=== PATIENT | female | born 1955 | race Caucasian/White ===

== ENCOUNTER 2016-11-01 05:19 | Day surgery (SDC) | payer OTHER ==
[2016-10-26 13:22] LABS: HEMOGLOBIN 13.8 g/dL (12.0-16.0)
[2016-10-26 13:23] LABS: HEMATOCRIT 40.6 % (36.0-48.0)
[2016-10-26 13:30] LABS: BUN (BLOOD UREA NITROGEN) 15 MG/DL (6-23); CALCIUM, SERUM 9.1 MG/DL (8.5-10.4); CHLORIDE, SERUM 106 MMOL/L (96-112); CO2 (CARBON DIOXIDE) 29 MMOL/L (24-34); CREATININE 1.13 MG/DL (0.55-1.02); GFR AFRICAN AMERICAN 61 ML/MIN (>=60); GFR NON AFRICAN AMERICAN 52 ML/MIN (>=60); GLUCOSE, SERUM 91 MG/DL (60-99); POTASSIUM, SERUM 4.5 MMOL/L (3.5-5.3); SODIUM, SERUM 143 MMOL/L (135-148)
--- NOTE | ~2016-11-01 | OP ---
Record Of Operation [facility] [address] [place]. [address] NAME: LARA MASON : 55 STATUS : REG [facility] PAT#: [id number] AGE: 61 ADM/REG DATE : 11/01/16 MR#: [id number] REPORT SERV DATE: 11/01/16 DICTATED BY: SARTHAK CORTES DATE: 11/01/16 REPORT STATUS : Draft TRANSCRIBED BY: MODL DATE: 11/01/16 DATE OF PROCEDURE: PREOPERATIVE DIAGNOSES: 1. Cervical spondylosis, spinal stenosis, C3-4, 4-5, 5-6. 2. 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 POSTOPERATIVE DIAGNOSES: 1. Cervical spondylosis, spinal stenosis, C3-4, 4-5, 5-6. 2. 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 PROCEDURES: 1. Microscopic and navigation-assisted surgery. 2. Anterior cervical diskectomy with foraminotomy, C3-4, 4-5, 5-6. 3. Anterior interbody fusion with cortical cancellous allograft, C3-4, 4-5, 5-6. 4. Anterior segmental spinal instrumentation with Venture plating, C3 to C6. SURGEON: Sarthak Cortes D.O. RACK LOADER: Michael Echeverria. ANESTHESIA: General. BLOOD LOSS: 20 mL. INDICATIONS FOR SURGERY: A 61-year-old female with neck pain, shoulder and arm pains that have been present for many years, but have been slowly worsening now, has rather severe neck pain, shoulder and arm pains, has headaches that are cervicogenic in nature. She has tried usual conservative care. Plain x-rays reveal spondylosis at C3 to C6. There is also a cervical kyphosis with approximately a 10-degree kyphosis with a cervical, sagittal, vertical axis of 4 cm. The patient has failed conservative care, brought to surgery for the above procedure. Prior to surgery, risks, benefits, alternatives, and expectations explained, consent form is signed. Please also note because of the complexity of surgery and the need to identify correct level of surgery intraoperatively as well as desire to carry out the safest and most precise dissection, I feel that intraoperative navigation is mandatory. DESCRIPTION OF PROCEDURE: Antibiotic prophylaxis given. Neurophysiology monitoring leads were inserted. The patient was brought to the operative suite. General anesthetic including endotracheal intubation was administered. The patient was in a supine position on fluoroscopic Loyd spine frame. A small bolster was placed behind the shoulders, neck was in a minimally extended position. The scalp was painted with Betadine solution. [place] three-point fixation attached to the skull using 60 pounds torque in standard position. The [place] attached to the Loyd bed. The Owlr navigational registration frame attached to the [place]. Isolation drapes were placed. The neck was scrubbed with [facility] Record Of Operation [facility] [address] [place]. [address] NAME: LARA MASON : 55 STATUS : REG [facility] PAT#: [id number] AGE: 61 ADM/REG DATE : 11/01/16 MR#: [id number] REPORT SERV DATE: 11/01/16 DICTATED BY: SARTHAK CORTES DATE: 11/01/16 REPORT STATUS : Draft TRANSCRIBED BY: AVILA DATE: 11/01/16 solution. DuraPrep was painted. Sterile drapes applied. Intraoperative CT scan with O-arm obtained, CT information used to register the navigational system. With navigational assistance, I identified the C3-4, 4-5, and 5-6 level. At the disk level of C4-5, a left-sided transverse 2.5 cm skin incision was carried out. The platysma muscle was incised in line with the skin incision. The superficial layer of the deep cervical fascia was released along the anterior border of the sternocleidomastoid. Blunt dissection was carried out to the retropharyngeal space where the longus coli muscles were subperiosteally elevated. Retractors were placed. The microscope was sterilely draped and used throughout the remainder of the procedure. With navigational assistance, I identified the midbody of C5 and C6. [place] distractor pins were placed. Initially, I debrided the anterior osteophytes. Curettes and rongeurs were used to debride the disk from an anterior to posterior direction. We slowly distracted the interbody space moving from anterior to posterior to have better visualization. Endplate cartilage completely removed. The uncinate hypertrophy was debrided with a 3 mm and 2 mm anson bur. A 1 mm Kerrison also used for the foraminotomy which was carried out beyond the axilla of the nerve. The wounds were irrigated. Width, depth, and height of the disk space was measured. A wedge-shaped cortical cancellous allograft was placed in the interbody space. This traction was released locking the graft in good position. We then moved to C4-5, repeated the same identical steps with anterior diskectomy, foraminotomy, and interbody fusion. Finally, at C3-4, we completed the diskectomy, foraminotomy, and interbody fusion done in the same steps. Finally, an 8-hole Venture plate was placed over the anterior bodies of C3 to C6. Once it was properly positioned in the midline, eight holes were drilled. The locking screws inserted providing rigid stability. On the intraoperative x-rays, it was questionable as to whether or not the bottom screws of the C6 plate were near the endplate inferiorly at C6. We did an intraoperative CT scan with the O-arm and found that the screws were within the vertebral body and did not penetrate the endplate and thus, no exchange of the plate was necessary. The wound was carefully inspected, no bleeding was noted. There was no need for a drain. The platysma muscle was closed with a running 3-0 Vicryl suture. The subcutaneous tissue closed with 3-0 Vicryl suture. Subcuticular 4-0 PDS used for skin closure. Sterile dressings applied. The patient awakened, extubated, and taken to recovery room in satisfactory condition having tolerated the procedure well. Sponge, needle, and instrument counts were correct. No intraoperative complications noted. PATRICK/AVILA Record Of Operation [address] [address] NAME: LARA MASON : 55 STATUS : REG [facility] PAT#: [id number] AGE: 61 ADM/REG DATE : 11/01/16 MR#: [id number] REPORT SERV DATE: 11/01/16 DICTATED BY: SARTHAK CORTES DATE: 11/01/16 REPORT STATUS : Draft TRANSCRIBED BY: AVILA DATE: 11/01/16 Sarthak Cortes D.O. / [id number] CC: Shimon Diaz D.O. F.A.C.P.
[~2016-11-01 05:19] MED LIST: ACET500CAP PO; ASAB PO; CRESTOR10 PO; LIDODERM TOP; NEUR300 PO; PRILO PO; ULTRAM50; VOLT75 PO; WELLXL300 PO
== END 2016-11-01 17:15 | disposition home or self-care (01) ==
LOC: SDC 05:19
PROVIDERS: Orthopaedic Surgery Orthopaedic Surgery of the Spine
PROC: 0PU307Z Supplement Cervical Vertebra with Autologous Tissue Substitute, Open Approach (ICD-10-PCS; 2016-11-01)
PROC: 0RG20A0 Fusion of 2 or more Cervical Vertebral Joints with Interbody Fusion Device, Anterior Approach, Anterior Column, Open Approach (ICD-10-PCS; principal; 2016-11-01 07:15)
PROC: 0RB30ZZ Excision of Cervical Vertebral Disc, Open Approach (ICD-10-PCS; 2016-11-01 07:15)
DX: M48.02 Spinal stenosis, cervical region (principal); M47.9 Spondylosis, unspecified; M41.9 Scoliosis, unspecified; M50.93 Cervical disc disorder, unspecified, cervicothoracic region; M54.12 Radiculopathy, cervical region; K21.9 Gastro-esophageal reflux disease without esophagitis; Z88.1 Allergy status to other antibiotic agents; Z79.1 Long term (current) use of non-steroidal anti-inflammatories (NSAID); Z79.899 Other long term (current) drug therapy; Z90.711 Acquired absence of uterus with remaining cervical stump; Z98.890 Other specified postprocedural states; Z89.021 Acquired absence of right finger(s)
CPT/HCPCS: 36415; 80048; 82962; 85014; 85018; 87641; 88304; 93005; C1713; C1768; J0690; J1170; J2250; J2370; J2405; J2710; J3010